=== PATIENT | male | born 1950 | race Caucasian/White ===

== ENCOUNTER 2017-10-02 07:00 | Day surgery (SDC) | payer OTHER ==
[~2017-10-02] VITALS: Ht 175.3 cm; Wt 110.2 kg
[~2017-10-02 07:00] MED LIST: ABILIFY10 MG PO; BEE POLLEN550 MG PO; GINSENG250 MG PO; MULTIVITAMINS1 EAC8 PO; ROYAL JELLY200 MG PO; WELLBUTRIN XL300 MG PO
--- NOTE | 2017-10-02 09:16 | NUR ---
10/02/17 0915 Lucille Lares 0850 PATIENT ARRIVED TO PACU WITH ORAL AIRWAY, 10L O2 VIA MASK FOR 100 % SATS. RN MAINTAINING AIRWAY WITH JAW THRUST. PATIENT NON-RESPONSIVE TO STIMULI. 0852 PATIENT ON 8L 02 FOR 97% RM CONTINUES TO MAINTAINS AIRWAY WITH JAWTHRUST. PATIENT IS MINIMALLY REPONSIVE TO STIMULI. 0900 ORAL AIRWAY OUT. PATIENT TRANSITIONED TO ROOM AIR, WITH 95% SATS. 0912 PATIENT OPENING EYES, ON ROOM AIR FOR 97%. PATIENT OCCASIONALLY SLEEPY WITH APNIC PERIODS. REFERRAL TO PCP FOR APNEA DONE. PATIENT SITTING UP TAKING SIPS OF WATER AND ASKING QUESTIONS ABOUT WHAT THE DOCTOR FOUND DURING EGD.
--- NOTE | 2017-10-02 10:36 | OR ---
[facility] [address], [place] [address] Signed DATE OF OPERATION: 10/02/2017 SURGEON: Ramone Shepard MD PREOPERATIVE DIAGNOSES: 1. Proximal esophageal dysphagia. 2. Hiatal hernia. POSTOPERATIVE DIAGNOSES: 1. Moderate gastroduodenitis. 2. Moderate hiatal hernia. PROCEDURE: EGD with CLOtest without biopsies per patient request. INDICATIONS: Matt is a 67-year-old gentleman with schizoaffective disorder. He was asked to see me by his [facility] provider. He talks about chronic dysphagia and he points basically to the posterior oropharynx. He said the last year or two, it has been worse particularly with meat. He had a CT scan of his abdomen and pelvis performed through his [facility] provider and there was evidence of hiatal hernia. He underwent a barium swallow and the esophagus is dilated and quite tortuous. As a result, he was asked to see me for upper endoscopy. Matt was actually quite nervous in the office. He said colonoscopy was 100% out of the question. He said he let me do an upper endoscopy, but only if I did not perform any biopsies and even stay, he maintained that desire to withhold any biopsies. In the office, I had given him pamphlets on both upper and lower endoscopy and we had looked at those together. He understands the nature of the 2 tests along with the risks including, but not limited to gas bloating, crampy abdominal pain, bleeding, perforation, requiring surgery, and missed diagnosis. Also, Matt has a very heavy full neck, very full face, and we wanted the anesthesia provider to help us with airway control as well as infusion of propofol. He had expressed understanding and wished to proceed. PROCEDURE NOTE: Matt was taken into our endoscopy suite and placed in a supine semi-recumbent position. He was given IV sedation with propofol per our nurse industrial electrician journeyman. The posterior oropharynx was anesthetized with Hurricaine spray. The adult gastroscope was then introduced. I could see some [id number] swelling of his arytenoids. The scope was then passed down into the esophagus and yesterday, it is tortuous and a bit dilated. We came through the Z-line out in the stomach and then ultimately into the duodenum. Electronically Signed By: RAMONE SHEPARD MD 10/02/17 1036 PATIENT NAME: MATT DOBSON OPERATIVE REPORT DATE OF : 48 REPORT #: [id number] PHYSICIAN: RAMNOE SHEPARD MD PCP: RAMOS MANZANARES MD REPORT IS CONFIDENTIAL AND NOT TO BE RELEASED WITHOUT AUTHORIZATION [facility] [address], [place] [address] Signed The duodenum was fine. The pyloric bulb showed just a little inflammation. The bottom half of the stomach shows moderate inflammation. No ulcerations. All of this is consistent with gastroduodenitis. We took no biopsies at his request. Consequently, his H. pylori could be checked through his serum or stool level. The scope was then retroflexed and the incisura body and fundus of the stomach were fine. There were no gastric or esophageal varices. However, he does have a moderate-sized hiatal hernia. The scope was withdrawn up through the area of the GE junction, which was compliant without stricture. The Z-line is relatively intact. There was no Lindsay's mucosa, no distal esophagitis. No middle or upper esophagitis. After this, the gas was suctioned out and the gastroscope removed. Matt tolerated this procedure quite well. RECOMMENDATIONS: Matt should strongly consider using a proton pump inhibitor at least for 2-3 months to get his stomach to settle down and he could always move back to an H2 lolita. I suspect the irritation he has in the posterior oropharynx is reflux at night while he is sleeping. I will have him in the office in a week or two and I will show him the pictures and go over this with him. Ramone Shepard MD ALB/MODL /[id number] cc: MD Ramos Clarke MD Copies: RAMONE SHEPARD MD, DELWYN MD ~ Electronically Signed By: RAMONE SHEPARD MD 10/02/17 1036 PATIENT NAME: MATT DOBSON OPERATIVE REPORT DATE OF : 48 REPORT #: [id number] PHYSICIAN: RAMONE SHEPARD MD PCP: RAMOS MANZANARES MD REPORT IS CONFIDENTIAL AND NOT TO BE RELEASED WITHOUT AUTHORIZATION
--- NOTE | 2017-10-02 10:45 | NUR ---
PT VERY ANXIOUS-SEEMED TO HANDLE MY PRESENCE. EXPLAINED WHAT PT COULD EXPERIENCE TODAY, SEEMED TO HELP. HE DID SAY HOWEVER THAT HE DID NOT WANT ANY BIOPSIES. I ENCOURAGED HIM TO TAKE THIS UP WITH DR SHEPARD. PT REQUESTED PRAYER, WILL FOLLOW NEEDED
== END 2017-10-02 09:40 | disposition home or self-care (01) ==
LOC: DS 07:00 → OPS 07:00 → DS 08:45
PROVIDERS: Colon & Rectal Surgery
PROC: 0DJ08ZZ Inspection of Upper Intestinal Tract, Via Natural or Artificial Opening Endoscopic (ICD-10-PCS; principal; 2017-10-02 08:45)
DX: K29.90 Gastroduodenitis, unspecified, without bleeding (principal); K44.9 Diaphragmatic hernia without obstruction or gangrene; F25.9 Schizoaffective disorder, unspecified; K22.8 Other specified diseases of esophagus; E66.01 Morbid (severe) obesity due to excess calories; I10 Essential (primary) hypertension; J44.9 Chronic obstructive pulmonary disease, unspecified; Z87.891 Personal history of nicotine dependence; B19.20 Unspecified viral hepatitis C without hepatic coma; E78.5 Hyperlipidemia, unspecified; Z79.899 Other long term (current) drug therapy; Z68.35 Body mass index [BMI] 35.0-35.9, adult
CPT/HCPCS: J2704; J7120